=== PATIENT | female | born 2005 | race Caucasian/White ===

== ENCOUNTER 2025-05-08 00:19 | Emergency (ER) | payer OTHER ==
[~2025-05-08] VITALS: Ht 157.5 cm; Wt 107.5 kg
[~2025-05-08 00:19] MED LIST: CEFDINIR300 MG PO; CEPHALEXIN500 MG PO; ONDANSETRON ODT4 MG PO; REGLAN10 MG PO
[2025-05-08] MEDS: IBUPROFEN 600 MG TAB PO STA (00:47)
[2025-05-08] MEDS: ACETAMINOPHEN 325 MG TAB PO STA (00:48)
[2025-05-08 01:09] LABS: CORONAVIRUS COVID-19 AG NEGATIVE (NEGATIVE); STREPTOCOCCUS GRP A ANTIGEN NEGATIVE (NEGATIVE)
[2025-05-08 01:19] VITALS: PULSE 106; RESP 19; O2SAT 99
[2025-05-08 01:21] VITALS: TEMP 100
[2025-05-08] MEDS ORDERED: ONDANSETRON ODT4 MG PO (01:27)
[2025-05-08] MEDS ORDERED: AZITHROMYCIN250 MG PO (01:27)
[2025-05-08] MEDS: ONDANSETRON HCL 4 MG ORAL DISINTEGRATING TAB PO STA (01:35)
[2025-05-08] MEDS: DEXAMETHASONE SOD PHOS 10 MG/1 ML VIAL IM STA (01:35)
== END 2025-05-08 01:43 | disposition home or self-care (01) ==
LOC: ER 00:27
DX: R50.9 Fever, unspecified (principal); J06.9 Acute upper respiratory infection, unspecified; R05.9 Cough, unspecified
CPT/HCPCS: 83518; 87070; 87426; 93005; 99283; J1100; Q0162